=== PATIENT | female | born 1975 | race Caucasian/White ===

== ENCOUNTER 2023-04-12 16:55 | Emergency (ER) | payer BC, SELFPAY ==
[2023-04-12 18:00] VITALS: BP 143/91; PULSE 70; RESP 19; TEMP 36.8; O2SAT 96; BMI 32.1
--- NOTE | 2023-04-12 18:32 | EXP.UTC ---
Discharge Plan Disposition Patient Disposition: Home, Self-Care Condition: Good Prescriptions Prescriptions: New amoxicillin-pot clavulanate 875-125 mg Tablet 1 tab PO Q12H Qty: 20 0RF ciprofloxacin-dexamethasone [Ciprodex] 0.3-0.1 % drops,suspension 4 drp otic (ear) BID 7 Days Qty: 7.5 0RF Rx Instructions: in left ear as prescribed No Action propranolol 40 mg tablet 40 mg PO BID omeprazole 20 mg capsule,delayed release(DR/EC) 20 mg PO DAILY methimazole 5 mg tablet 5 mg PO BID amoxicillin 500 mg capsule 500 mg PO Q12H 10 Days Qty: 20 0RF tqcfaejy-pjgkqrxvo-ST 3.5-10,000-1 mg/mL-unit/mL-% drops,suspension 4 drp OTIC Q8H 10 Days Qty: 10 0RF Referrals Follow up/Referrals: Vlad Tenorio [Primary Care Provider] - See instructions Activity Restrictions/Add. Instructions Additional Instructions/Restrictions: *Monitor Temp, Over the counter Motrin or Tylenol as directed/as needed Tylenol every 4 hours and Motrin every 6 hours (as long as your family doctor has told you that you can take it) for fever or pain. and straight to ER if unable to lower temp less than 101.0 after medication given *Warm salt water gargles may help to soothe the throat *Throat Lozenges? *Warm fluids like tea with honey may help to soothe the throat? *Sleep elevated *Humidifier/Vaporizer Use Drops as prescribed Follow up IMMEDIATELY for new or worsening symptoms or no Noticeable improvement over the next 48-72 hours. 911 for difficulty breathing or swallowing You were tested for today for Upper Respiratory Panel with COVID19 your test result should be back in the next 24, you may Check your Results on the [facility] [employer] [facility] Portal Clinical Impressions Clinical Impression: Otitis media Qualifiers: Otitis media type: unspecified Laterality: left Qualified Code(s): H66.92 - Otitis media, unspecified, left ear Otitis externa Qualifiers: Otitis externa type: unspecified type Chronicity: unspecified Laterality: left Qualified Code(s): H60.92 - Unspecified otitis externa, left ear Stand Alone Forms Stand Alone Forms: Work/School Release Instructions Patient Instructions: DI for COVID-19 (Suspected or Confirmed ), Preventing the Spread of Coronavirus Discharge Instructions, Middle Ear Infection, DI for Otitis Externa Discharge ED Provider: Chacha Davis [facility] [place] [facility] [place] General Stated complaint: left ear swelling, covid exposure, h/a fatigue soa Mode of Arrival: Ambulatory Source of Information: Patient Limitations: No Limitations Time Seen by Provider: 04/12/23 18:32 Description of Symptoms (Recalled from Triage Doc. by RN): PATIENT C/O LEFT EAR PAIN, BODY ACHES, CHILLS, AND COUGH X 2 DAYS. RECENTLY EXPOSED TO COVID HEENT Symptoms (Recalled from RN notes): Yes Resp Symptoms (Recalled from RN notes): Yes Skin Symptoms (Recalled from RN notes): No MS Symptoms (Recalled from RN notes): No Functional Status (Recalled from RN notes): WNL History of Present Illness Provider Complaint: Patient states that she has been having pain and swelling in her left ear, States that she was recently on Amoxicillin and it got better but now it is worse States that also she thinks she may have COVID her daughter has it and she has been around her Related Data Home Medications Medication Instructions Recorded Confirmed methimazole 5 mg tablet 5 mg PO BID 04/25/19 04/25/19 omeprazole 20 mg capsule,delayed 20 mg PO DAILY 04/25/19 04/25/19 release propranolol 40 mg tablet 40 mg PO BID 04/25/19 04/25/19 Previous Rx's Medication Instructions Recorded amoxicillin 500 mg capsule 500 mg PO Q12H otitis media 10 04/25/19 days #20 caps dssbwpnj-jvqzetbzn-cewtpjwfx 3.5 4 drp otic (ear) Q8H 10 days #10 mL 04/25/19 mg-10,000 unit/mL-1 % ear drops,susp amoxicillin 875 mg-potassium 1 tab PO Q12H #20 tabs 04/12/23 clavulanate 125 mg tablet ciprofloxacin 0.3 %-dexamethasone 4
[2023-04-12 18:47] VITALS: BP 143/91; PULSE 70; RESP 19; TEMP 36.8; O2SAT 96
== END 2023-04-12 18:52 | disposition home or self-care (01) ==
PROVIDERS: Emergency Provider Nurse Practitioner; PCP Pediatrics
DX: H66.012 Acute suppurative otitis media with spontaneous rupture of ear drum, left ear (principal); H60.92 Unspecified otitis externa, left ear
CPT/HCPCS: 99204; 99212; G0463